=== PATIENT | female | born 1955 ===

== ENCOUNTER 2024-11-09 13:51 | Outpatient (AMB) | payer MEDICARE, SELFPAY ==
--- OUTSIDE RECORDS SUMMARY | 2024-11-09 13:58 | XMS_ITS | Encounter Summary ---
Author Organization [facility] [address] Address [address] [place] [address] Care Team Providers Care Chief Revenue Officer Name Role Phone Eliana Huertas MD Primary Care Prov ider Reason for Visit * Reason Onset Date Comments Med Refill 10/09/2024 Encounter Details Date Type Department Care Team (Late st Contact Info) Description 10/09/2024 Telephone Endocrinology - [place] [address] [place], [place] [phone] Latha Kessler PA [address] [place] [address] Social History Tobacco Use Types Packs/Day Years Used Date Smoking Tobacco: Never Smokeless Tobacco: Never Alcohol Use Standard Drinks/Week Comments No 0 (1 standard drink = 0.6 oz pur e alcohol) Housing Instability Answer Date Recorde d Are you worried that in the next 2 months you may not have stable housing? No 01/05/2024 Food Access & Nutrition Answer Date Rec orded Do you have access to a vari ety of food including fruits and vegetables? Yes 01/05/2024 Health Literacy Answer Date Recorded How often do you need to hav e someone help you when you read instructions, pamphlets, or other written material from your doctor or pharmacy? Rarely 01/05/2024 Caregiver: How often do you need to have someone help you when you read instructions, pamphlets, or other written material from your doctor or pharmacy? Not on file 01/05/2024 Financial Risk Answer Date Recorded How hard is it for you to pa y for the very basics like food, housing, medical care, and air conditioning / heating? Not very hard 01/05/2024 Transportation Answer Date Recorded Has the lack of transportati on kept you from meetings, work, or from getting things needed for daily living? No Has the lack of transportati on kept you from medical appointments or from getting medications? No 01/05/2024 Social Isolation Answer Date Recorded How often do you feel lonely or isolated from th ose around you? Never 01/05/2024 Food Risk Answer Date Recorded Within the past 12 months we worried whether our food would run out before we got money to buy more. Never true 01/05/2024 Within the past 12 months th e food we bought just didn't last and we didn't have money to get more. Never true 01/05/2024 Dependent Care Answer Date Recorded Do you need help finding or paying for care for your loved ones. For example, child and family services worker or elderly care for an older adult? No 01/05/2024 Education Answer Date Recorded Do you think completing more education or training, like finishing a GED, going to college, or learning a trade, would be helpful for you? No 01/05/2024 Employment and Income Answer Date Recor ded During the last four weeks, have you been actively looking for work? No 01/05/2024 Living Situation Answer Date Recorded What is your living situation? 1 03/06/2023 Comments No Sex and Gender Information Value Date Recorded Sex Assigned at Not on file Legal Sex Female 9:41 AM EST Gender Identity Not on file Sexual Orientation Not on file documented as of this encounter Plan of Treatment Upcoming Encounters Date Type Department Care Team (Late st Contact Info) Description 12/11/2024 1:[address] [facility] D[facility] [address] [place] [address] 01/25/2025 9:00 AM EST Office Visit Adult Medicine [address] [phone] Eliana Huertas MD [address] [place], [place] 02/01/2025 8:45 AM EST Office Visit Endocrinology - [address] [phone] Latha Kessler PA [address] [place] [address] documented as of this encounter Visit Diagnoses Not on filedocumented in this encounter Additional Health Concerns Assessment Noted Time PHQ-9 Depression Total Score: 0 01/05/20 6:21 PM EST documented as of this encounter Care Teams Chief Revenue Officer Relationship Specialty Start Date End Date Eliana Huertas MD [address] [place] [address] PCP - General Internal Medicine 01/17/24 documented as of this encounter
--- OUTSIDE RECORDS SUMMARY | 2024-11-09 13:59 | XMS_ITS ---
Author Name [facility] Organization Unknown Care Team Organization Name Specialty Phone Email Start Date End Da te [facility] Nils Collins Primary Care 06/28/2022 [facility] Termed, PROVIDER Primary Care 12/29/202109/21
--- OUTSIDE RECORDS SUMMARY | 2024-11-09 13:59 | XMS_ITS | Clinical Summary ---
Author Organization [facility] [address] [facility] Address [address] [place] [address] Phone Care Team Providers Care Cloth Measurer Name Role Phone Eliana Huertas MD Primary Care Prov ider Allergies No known active allergies Medications blood-glucose meter kit Test fasting glucose daily 08/20/19 22 Active acetaminophen (TYLENOL) 325 mg capsule Take 500 mg by mouth 1 (one) time each day. Active multivitamin (MULTIPLE VITAMINS ORAL) Take by mouth. Activ e mv-min/FA/vit K/lutein/zeax ant (PRESERVISION AREDS 2 PLUS MV ORAL) Take 2 capsules by mouth 2 (two) times a day. Active atorvastatin (LIPITOR) 20 mg tablet Take 1 tablet (20 mg total) by mouth 1 (one) time each day. 90 each 3 04/24/19 25 2025 Active diclofenac (VOLTAREN) 1 % topical gel Sig - Route: Apply 4 g topically 3 times daily as needed (back pain).Sig - Route: Apply 4 g topically 3 times daily as needed (back pain). 100 g 1 04/24/19 25 Active lancets (iubendaTouch Delica Plus Lancet) 33 gauge Apply 1 Stick topically 1 (one) time each day. 100 each 3 07/19/19 25 Active blood sugar diagnostic (OneTouch Verio test strips) test strip Use as instructedUSE TO TEST BLOOD SUGAR ONCE DAILY 100 each 07/19/19 25 Active metFORMIN XR (GLUCOPHAGE-X R) 500 mg 24 hr tablet Take 1 tab twice a day 60 each 07/19/19 25 Active empagliflozin (JARDIANCE) 25 mg tablet Take 1 tablet (25 mg total) by mouth 1 (one) time each day. 90 tablet 3 10/19/19 25 Active losartan-hydr oCHLOROthiazi de (HYZAAR) 50-12.5 mg per tablet Take 1 tablet by mouth 1 (one) time each day. Active empagliflozin (JARDIANCE) 10 mg tablet Take 1 tablet (10 mg total) by mouth 1 (one) time each day. 30 tablet 5 04/19/19 25 2024 Discontinued hydroCHLOROth iazide (HYDRODIURIL) 25 mg tablet Take 1 tablet (25 mg total) by mouth 1 (one) time each day. 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 Nair is here for 1 year follow-up since her C5-6 ACDF with plating on 07/05/2022 for cervical myelopathy. She has definitely had improved sensation especially the left hand and is no longer dropping plates and cups. 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 She has not had any trouble using those fine tools. She denies neck pain. She has not yet returned to driving because of her eyesight. On exam, her incision is well-healed, cervical rotation is 60 degrees bilaterally, strength 5/5, gait is a little unsteady she continues to use a cane. Review of the AP/lateral and flexion/extension x-rays from today show the graft to be well incorporated, plate and screws are all intact and there is no instability at any level. She has maintained normal lordosis. She is hopeful that she may continue to see some improvements in the sensation in the right fingers but she is likely at maximal medical improvement. At least her dexterity and strength are perfect and she has no real limitations. She is welcome to contact us if there are any new concerns in the future. Bilateral hand numbness 05/29/2022 CKD (chronic kidney disease) stage 3, GFR 30-59 ml/min ([facility] V24, [facility] V28) 12/18/2021 Assessment & Plan (10/24/2024 9:07 AM EDT): Last GFR was 45, stable. Following with nephrology. Recommended to avoid nephrotoxics. Assessment & Plan (04/23/2024 1:01 PM EST): Last GFR was 45, stable. Following with nephrology. Recommended to avoid nephrotoxics. Microalbuminuria 12/18/2021 DM (diabetes mellitus), type 2 with renal complications ([facility] V24, [facility] V28) 08/19/2021 Assessment & Plan (10/28/2024 12:20 PM EDT): Poor control of diabetes. Last A1c: 8.9. Patient will continue with yearly Podiatric and Ophthomologic evaluations. Follows with marvin, currently on Jardiance and Metformin. Did not tolerate Ozempic. Patient will follow up in 3 months Assessment & Plan (04/23/2024 1:01 PM EST): Poor control of diabetes. Last A1c: 8.2. Patient will continue with yearly Podiatric and Ophthomologic evaluations. Follows with marvin, currently on Ozempic and pending to start Jardiance. Recommended to keep taking her medications. Will see endo in June. Patient will follow up in 6 months Assessment & Plan (01/06/2024 4:02 PM EST): On Ozempic, unable to afford Jardiance. Will follow with endo next week. Hypertension 08/19/2021 Assessment & Plan (10/28/2024 12:20 PM EDT): The patient's antihypertensive regimen is based on their underlying medical issues. At the time of this visit, the blood pressure is well controlled on HCTZ. The patient is instructed to follow a low sodium diet and to follow up in 3 months. Assessment & Plan (04/23/2024 1:01 PM EST): The patient's antihypertensive regimen is based on their underlying medical issues. At the time of this visit, the blood pressure is well controlled on HCTZ. The patient is instructed to follow a low sodium diet and to follow up in 6 months. Dyslipidemia 07/27/2013 Assessment & Plan (10/28/2024 12:20 PM EDT): Given the patients cardiac risk profile, the patient requires an LDL cholesterol of less than 70. I have instructed the patient on the principles of a low cholesterol diet and the importance of regular exercise. Assessment & Plan (04/23/2024 1:01 PM EST): Given the patients cardiac risk profile, the patient requires an LDL cholesterol of less than 70, at target. I have instructed the patient on the principles of a low cholesterol diet and the importance of regular exercise. Kidney stone 12/10/2010 Encounters Date Type Department Care Team Description 10/24/2024 8:30 AM EDT Office Visit Adult Medicine [address] [phone] Eliana Hernandes MD Type 2 diabetes mellitus with stage 3 chronic kidney disease, without long-term current use of insulin, unspecified whether stage 3a or 3b CKD (CMS/HCC V24, CMS/HCC V28) (Primary Dx); Primary hypertension; Dyslipidemia; Stage 3 chronic kidney disease, unspecified whether stage 3a or 3b CKD (CMS/HCC V24, CMS/HCC V28); Primary osteoarthritis of right hip 10/18/2024 8:30 AM EDT Office Visit [address] [place] [phone] Latha Kessler PA Type 2 diabetes mellitus with stage 3 chronic kidney disease, without long-term current use of insulin, unspecified whether stage 3a or 3b CKD (CMS/HCC V24, CMS/[facility] V28) (Primary Dx); Primary hypertension; Stage 3 chronic kidney disease, unspecified whether stage 3a or 3b CKD (CMS/HCC V24, CMS/HCC V28); Microalbuminuria; Post-menopausal 10/09/2024 Telephone Endocrinology - [place] [address] [place], [place] [phone] Latha Kessler PA from Last 3 Months Immunizations Name Administration Dates Next Due Influenza Quadravalent, MDCK , 0.5ml, with preservative (Flucelvax) 6mo and older 11/30/2019 Influenza trivalent, 0.5mL ( Fluzone High-dose) 65yo and older 01/03/2023,12/22/2021 Influenza trivalent, with pr eservative (Fluzone; Afluria) 6mo and older 11/22/2023 Pneumococcal conjugate 20 va lent (Prevnar 20, PCV 20) 2mo and older 01/03/2023 Pneumococcal polysaccharide 23 valent (Pneumovax 23) 2yo and older 12/22/2021 Td Tetanus diptheria (Tdvax) 7yo and older 07/04 Tdap Tetanus diptheria acell ular pertussis (Boostrix; Adacel) 7yo and older 01/06/2024,01/06/2012 Surgical History Surgery Date Site/Laterality Comments COLONOSCOPY 03/26/11 [facility] PROCEDURE: HISTORICAL COLONOSCOPY; COMMENT: tics; repeat in ten yrs OTHER SURGICAL HISTORY 07/05/2022 PROCEDURE: AK ARTHRD ANT INTERDY CERVCL BELW C2 EA ADDL NTRSPC; COMMENT: C5-6 ACDF, Dr. Bhardwaj Medical History Medical History Date Comments Kidney stone 12/10/2010 DX:Kidney stone DM (diabetes mellitus), type 2 with renal complications (CMS/HCC V24, CMS/HCC V28) 08/19/2021 DX:DM (diabetes mellitus), t ype 2 with renal complications (HCC) CKD (chronic kidney disease) stage 3, GFR 30-59 ml/min ([facility] V24, [facility] V28) 12/18/2021 DX:CKD (chronic kidney disea se) stage 3, GFR 30-59 ml/min ([facility]) Microalbuminuria 12/18/2021 DX:Microalbumin uria Morbid obesity with BMI of 4 5.0-49.9, adult ([facility] V24, [facility] V28) 11/25/2010 DX:Morbid obesity wit h BMI of 45.0-49.9, adult ([facility]) Family History Medical History Relation Name Comments Diabetes Aunt Heart attack Father Other: atrial fib Mother Hyperthyroidism Sister Breast cancer Neg Hx Colon cancer Neg Hx Ovarian cancer Neg Hx Relation Name Status Comments Aunt Father Mother Sister Social History Tobacco Use Types Packs/Day Years Used Date Smoking Tobacco: Never Smokeless Tobacco: Never Tobacco Cessation:Counseling Given: Not Answered Alcohol Use Standard Drinks/Week Comments No 0 [...] care for your loved ones. For example, childcare director or elderly care for an older adult? [...] on file Sexual Orientation Not on file Obstetrics History Para Term AB IAB SAB Ectopic Multiple Livin g Live Births 2 2 2 2 Date Outcome GA Total Labor Labor/2nd/3rd Weight Sex Type Anes PTL Madelyn A1 A5 Name Clin Term Term Last Filed Vital Signs Vital Sign Reading Time Taken Comments Blood Pressure 135/73 10/24/2024 8:50 AM EDT Pulse 77 10/24/2024 8:50 AM EDT Temperature 35.7 C (96.2 F) 10/24/2024 8:50 AM EDT Respiratory Rate 15 10/24/2024 8:50 AM EDT Oxygen Saturation 97% 10/24/2024 8:50 AM EDT Inhaled Oxygen Concentration - - Weight 107 kg (236 lb 6.4 oz) 10/24/2024 8:50 AM EDT Height 160 cm (5' 3 ) 10/24/2024 8:50 AM EDT Body Mass Index 41.88 10/24/2024 8:50 AM EDT Plan of Treatment Upcoming Encounters Date Type Department Care Team (Late st Contact Info) Description 12/11/2024 1:00 PM EDT Appointment [facility] Bone Density [address] [place] [phone] 01/25/2025 9:00 AM EST Office Visit Adult Medicine East - [address] [phone] Eliana Huertas MD [address] [place], [place] 02/01/2025 8:45 AM EST Office Visit Endocrinology - [address] [phone] Latha Kessler PA [address] [place] [address] Health Maintenance Due Date Last Done Comments Zoster Vaccines (1 of 2) 1974 RSV Immunization Adult Patients (1 - Risk 60-74 years 1-dose series) 2015 Medicare Annual Wellness Visit 01/30/2022 Depression Screening 02/22/2024 01/05/2024, 09/02/19 24 Falls Risk Assessment 09/01/2024 09/02/2023 COVID-19 Vaccine ( season) 2024 12/26/2020, 05/03/2020, 04/05/2020 Influenza Vaccine (#1) 2024 , 01/03/2023, 12/22/2021, Additional history exists Diabetes: Annual Foot Exam 11/21/2024 11/22/2023 Social Influencers of Health Screening 01/04/2025 01/05/2024 Diabetes: Blood Sugar Control Test (HGBA1C) 01/18/2025 07/18/2024, 01/27/2024, 09/02/2023, Additional history exists Diabetes: Annual Retina Eye Exam 06/19/2025 06/19/2024, 05/30/2023 Diabetes: Annual Urine Albumin-Creatinine Ratio (uACR) 08/03/2025 08/03/2024, 08/03/2024, 01/27/2024, Additional history exists Diabetes: Annual GFR (Glomerular Filtration Rate) 08/03/2025 08/03/2024, 08/03/2024, 07/18/2024, Additional history exists Hypertension/CHF/CAD Annual BMP Blood Test 08/03/2025 08/03/2024, 08/03/2024, 07/18/2024, Additional history exists Breast Cancer Screening 05/02/2026 05/03/19, 04/27/2023, 04/21/2022, Additional history exists Colorectal Cancer Screening: Colonoscopy 08/12/2027 08/11/2022 Cholesterol Screening (Lipid Panel) 01/26/2029 01/27/2024, 03/02/2023 Osteoporosis Screening (Bone Density Screening) 04/21/2032 04/21/2022 DTaP,Tdap,and Td Vaccines (4 - Td or Tdap) 01/05/2034 01/06/2024, 01/06/2012, 07/05/2003 Hepatitis C Screening Completed 12/22/2018 Pneumococcal Vaccine: 50+ Years Completed 01/03/2023, 12/22/2021 HIB Vaccines Aged Out No longer eligi ble based on patient's age to complete this topic HPV Vaccines Aged Out No longer eligi ble based on patient's age to complete this topic Hepatitis A Vaccines Aged Out No long er eligible based on patient's age to complete this topic Hepatitis B Vaccines Aged Out No long er eligible based on patient's age to complete this topic IPV Vaccines Aged Out No longer eligi ble based on patient's age to complete this topic MMR Vaccines Aged Out No longer eligi ble based on patient's age to complete this topic Meningococcal ACWY Vaccine Aged Out N o longer eligible based on patient's age to complete this topic Meningococcal B Vaccine Aged Out No l onger eligible based on patient's age to complete this topic RSV Immunization Patients Under 20 months Aged Out No longer eligible based on patient's age to complete this topic Varicella Vaccines Aged Out No longer eligible based on patient's age to complete this topic Procedures Procedure Name Priority Date/Time Associated Diagnosis Comments POC GLUCOSE Routine 10/18/2024 8:25 AM EDT Type 2 diabetes mellitus with stage 3 chronic kidney disease, without long-term current use of insulin, unspecified whether stage 3a or 3b CKD (CMS/HCC V24, CMS/HCC V28) MICROALBUMIN CREATININE URINE RATIO Routine 08/03/2024 8:43 AM EDT Chronic kidney disease (CKD) stage G3a/A1, moderately decreased glomerular filtration rate (GFR) between 45-59 mL/min/1.73 square meter and albuminuria creatinine ratio les* (CMS/HCC V24, CMS/HCC V28) BASIC METABOLIC PANEL Routine 08/03/2024 8:43 AM EDT Chronic kidney disease (CKD) stage G3a/A1, moderately decreased glomerular filtration rate (GFR) between 45-59 mL/min/1.73 square meter and albuminuria creatinine ratio les* (CMS/HCC V24, CMS/HCC V28) HEMOGLOBIN A1C Routine 07/18/2024 4:32 PM EDT Type 2 diabetes mellitus with stage 3 chronic kidney disease, without long-term current use of insulin, unspecified whether stage 3a or 3b CKD (CMS/HCC V24, CMS/HCC V28) EXTERNAL DIABETIC RETINA EYE EXAM Routine 06/19/2024 11:52 AM EDT MG MAMMO DIGITAL SCREENING W C[place] BILAT Routine 05/02/2024 3:10 PM EDT Encounter for screening mammogram for breast cancer LIPID PANEL WITH REFLEX TO DIRECT LDL Routine 01/27/2024 8:21 AM EST Type 2 diabetes mellitus with stage 3 chronic kidney disease, without long-term current use of insulin, unspecified whether stage 3a or 3b CKD (CMS/HCC V24, CMS/HCC V28) DIABETES FOOT EXAM Routine 11/22/2023 DEPRESSION SCREENING Routine 09/02/2023 FALLS RISK ASSESSMENT Routine 09/02/2023 COLONOSCOPY Routine 08/11/2022 DXA BONE DENSITY STUDY 1+ SITS AXIAL SKEL Routine 04/21/2022 3:00 PM EST Type 2 diabetes mellitus with other diabetic kidney complication (CMS/HCC V24, CMS/HCC V28) Chronic kidney disease, stage 3 unspecified (CMS/HCC V24, CMS/HCC V28) Proteinuria, unspecified Morbid (severe) obesity due to excess calories ([facility] V24, [facility] V28) Body mass index (BMI) 45.0-49.9, adult ([facility] V24, [facility] V28) Hyperlipidemia, unspecified Essential (primary) hypertension HEPATITIS C SCREENING Routine 12/22/2018 from Last 3 Months or Most Recently Relevant to Health Maintenance Results * POC glucose manually resulted (10/18/2024 8:25 AM EDT) Glucose POC 302 mg/dL Blood Capillary blood specimen / Unknown 10/18/2024 8:25 AM EDT us Latha MICHAUD POINT OF CARE TEST ENTER/ED IT ORDERABLES Final Result * (ABNORMAL) Microalbumin creatinine urine ratio (08/03/2024 8:43 AM EDT) Creatinine, Urine 114.0 mg/dL LAB CHEMISTRY METHOD 08/03/2024 11:22 AM EDT [facility] Microalb, Ur 120.0(H) 0.0 - 29.0 mg/L LAB CHEMISTRY METHOD 08/03/2024 11:22 AM EDT [facility] Microalb/Crea t Ratio 105(H) <30 mg/g creat LAB CHEMISTRY METHOD 08/03/2024 11:22 AM EDT [facility] Urine Urine specimen obtained by clean catch procedure / Unknown Non-blood Collection / Unknown 08/03/2024 8:43 AM EDT 08/03/2024 8:43 AM EDT Truman Olivas MD LAB URINE ORDERABLES Final Result [facility] [address] [place] [address], [place] [phone] * (ABNORMAL) Basic metabolic panel (08/03/2024 8:43 AM EDT) Sodium 137 133 - 145 mmol/L LAB CHEMISTRY METHOD 08/03/2024 10:27 AM [facility] Potassium 3.6 3.5 - 5.5 mmol/L LAB CHEMISTRY METHOD 08/03/2024 10:27 AM [facility] Chloride 101 96 - 110 mmol/L LAB CHEMISTRY METHOD 08/03/2024 10:27 AM [facility] CO2 26 21 - 32 mmol/L LAB CHEMISTRY METHOD 08/03/2024 10:27 AM [facility] Anion Gap 10 3 - 11 LAB CHEMISTRY METHOD 08/03/2024 10:27 AM [facility] Glucose 294(H) 70 - 100 mg/dL LAB CHEMISTRY METHOD 08/03/2024 10:27 AM [facility] BUN 22 5 - 25 mg/dL LAB CHEMISTRY METHOD 08/03/2024 10:27 AM [facility] Creatinine 1.29(H) 0.50 - 1.10 mg/dL LAB CHEMISTRY METHOD 08/03/2024 10:27 AM [facility] eGFR 45(L) >=60 mL/min/1. 73m2 LAB CHEMISTRY METHOD 08/03/2024 10:27 AM [facility] Comment:Calculation based on the Chronic Kidney Disease Epidemiology Collaboration (CKD-EPI) equation refit without adjustment for race. BUN/Creatinine Ratio 17.1 LAB CHEMISTRY METHOD 08/03/2024 10:27 AM [facility] Calcium 9.6 8.5 - 10.5 mg/dL LAB CHEMISTRY METHOD 08/03/2024 10:27 AM [facility] Blood Venous blood specimen / Unknown Venipuncture / Unknown 08/03/2024 8:43 AM EDT 08/03/2024 8:43 AM EDT Truman Olivas MD LAB BLOOD ORDERABLES Final Result Performing Organization Address [facility]/ZIP Co de Phone Number [facility] [address] [place] [address], [place] [phone] * (ABNORMAL) Hemoglobin A1c (07/18/2024 4:32 PM EDT) Hemoglobin A1C 8.9(H) <6.5 % LAB CHEMISTRY METHOD 07/18/2024 10:53 PM EDT [facility] Mean Bld Glu Estim. 209 mg/dL LAB CHEMISTRY METHOD 07/18/2024 10:53 PM EDT [facility] Blood Venous blood specimen / Unknown Venipuncture / Unknown 07/18/2024 4:32 PM EDT 07/18/2024 4:33 PM EDT Latha MICHAUD LAB BLOOD ORDERABLES Final Result Performing Organization Address [facility]/ZIP Co de Phone Number [facility] [address] [place] [address], [place] [phone] * External Diabetic Retina Eye Exam Report (06/19/2024 11:52 AM EDT) Anatomical Region Laterality Modality Ultrasound Historical Provider IMG US PROCEDURES Final R esult * MG Mammo Digital Screening w Clayton bilat (05/02/2024 3:10 PM EDT) Anatomical Region Laterality Modality Breast Bilateral Mammography 05/03/2024 1:09 PM EDT Impressions 05/03/2024 1:16 PM EDT 1. No mammographic evidence of malignancy 2. Scattered fibroglandular tissue BI-RADS CATEGORY: 2 - BENIGN RECOMMENDATION: Screening bilateral mammogram is recommended in 1 year. Mammo Location: [place] [facility], [address] [place] [address], [id number], . -------- FINAL REPORT -------- Dictated By: Matt Olivo Dictated Date: 05/03/2024 13:09 ET Assigned Physician: Matt Olivo Reviewed and Electronically Signed By: Matt Olivo Signed Date: 05/03/2024 13:16 ET Workstation ID: [id number] Transcribed By: Self Edit Transcribed Date: 05/03/2024 13:09 ET Narrative 05/03/2024 1:16 PM EDT A BILATERAL DIGITAL 3D SCREENING MAMMOGRAPHY HISTORY: Routine screening. No family history of breast cancer. COMPARISON: Multiple priors dating back to 04/21/2022 Technique: Bilateral full field digital mammography (3D) was performed using standard CC and MLO projections CAD was used to evaluate this mammogram. FINDINGS: Right: No suspicious masses, groups of microcalcification or areas of architectural distortion identified. Stable typically benign parenchymal asymmetries. Left: No suspicious masses, groups of microcalcification or areas of architectural distortion identified. Stable typically benign parenchymal asymmetries. BREAST DENSITY: B - There are scattered areas of fibroglandular density. Procedure Note Matt Olivo MD - 05/03/2024 A BILATERAL DIGITAL 3D SCREENING MAMMOGRAPHY HISTORY: Routine screening. No family history of breast cancer. COMPARISON: Multiple priors dating back to 04/21/2022 Technique: Bilateral full field digital mammography (3D) was performedusing standard CC and MLO projections CAD was used to evaluate this mammogram. FINDINGS: Right: No suspicious masses, groups of microcalcification or areas ofarchitectural distortion identified. Stable typically benign parenchymalasymmetries. Left: No suspicious masses, groups of microcalcification or areas ofarchitectural distortion identified. Stable typically benign parenchymalasymmetries. BREAST DENSITY: B - There are scattered areas of fibroglandular density. IMPRESSION: 1. No mammographic evidence of malignancy 2. Scattered fibroglandular tissue BI-RADS CATEGORY: 2 - BENIGN RECOMMENDATION: Screening bilateral mammogram is recommended in 1 year. Mammo Location: [facility], [address] [place] [address], [id number], . -------- FINAL REPORT -------- Dictated By: Matt Olivo Dictated Date: 05/03/2024 13:09 ET Assigned Physician: Matt Olivo Reviewed and Electronically Signed By: Matt Olivo Signed Date: 05/03/2024 13:16 ET Workstation ID: [id number] Transcribed By: Self Edit Transcribed Date: 05/03/2024 13:09 ET us Eliana Huertas MD IMG BI PROCEDURES Final Result * (ABNORMAL) Lipid panel with reflex to direct LDL (01/27/2024 8:21 AM EST) Cholesterol 152 0 - 200 mg/dL LAB CHEMISTRY METHOD 01/27/2024 10:05 AM EST [facility] Triglycerides 193(H) 0 - 150 mg/dL LAB CHEMISTRY METHOD 01/27/2024 10:05 AM [facility] HDL 40 >=40 mg/dL LAB CHEMISTRY METHOD 01/27/2024 10:05 AM EST [facility] LDL Calculated 73 0 - 100 mg/dL LAB CHEMISTRY METHOD 01/27/2024 10:05 AM EST [facility] VLDL Cholesterol Gregory 38.6 mg/dL LAB CHEMISTRY METHOD 01/27/2024 10:05 AM EST [facility] Non HDL Chol. (LDL+VLDL) 112 <145 mg/dL LAB CHEMISTRY METHOD 01/27/2024 10:05 AM EST [facility] Chol/HDL Ratio 3.8 0.0 - 4.4 LAB CHEMISTRY METHOD 01/27/2024 10:05 AM [facility] Blood Venous blood specimen / Unknown Venipuncture / Unknown 01/27/2024 8:21 AM EST 01/27/2024 8:21 AM EST us Latha MICHAUD LAB BLOOD ORDERABLES Final Result [facility] [address] [place] [address], [place] [phone] * Hm Diabetes Foot Exam (11/22/2023) [facility] Diabetes: Annual Foot Exam abstracted [facility] Provider HEALTH MAINTENANCE Final Result * Falls Risk Assessment (09/02/2023) [facility] Falls Risk Assessment abstracted Result [facility] hospital HEALTH MAINTENANCE Final Result * Depression Screening (09/02/2023) [facility] Depression Screening abstracted Result [facility] HEALTH MAINTENANCE Final Result * Colonoscopy (08/11/2022) [facility] Colonoscopy no interpretation , abstracted Anatomical Region Laterality Modality Other Result [facility] HEALTH MAINTENANCE Final Result * DXA BONE DENSITY STUDY 1+ SITS AXIAL SKEL (04/21/2022 3:00 PM EST) Anatomical Region Laterality Modality Bone Densitometr y 12/22/2021 11:0 3 AM EDT Narrative 04/21/2022 3:25 PM EST BONE DENSITY Lumbar Spine T-score is +1.8 (SD relative to 20-29 y/o adult) Z-score is +3.7 (SD relative to age matched peers) This is normal by criteria defined by the WHO. Left Hip T-score is -0.5 Z-score is +1.1 This is normal by criteria defined by the WHO. Impression: Based on the World Health Organization criteria, Lissy Nair should be classified as having normal bone density. The [facility] Department of Internal Medicine recommends using National Osteoporosis Foundation (NOF) guidelines in treatment decisions related to osteoporosis. NOF guidelines suggest considering treatment for postmenopausal women and men aged 50 or older presenting with the following: History of hip or vertebral fracture. T-score less than or equal to -2.5 (DXA) at the femoral neck, total hip, or spine, after appropriate evaluation to exclude secondary causes. Low bone mass (T-score between -1.0 and -2.5 at the femoral neck or spine) AND a 10-year probability of a hip fracture greater than or equal to 3% OR a 10-year probability of a major osteoporosis-related fracture greater than or equal to 20% based on the [place]-adapted WHO algorithm Please note that all treatment decisions require clinical judgment and consideration of individual patient factors, including patient preferences, co-morbidities, previous drug use, risk factors not captured in the FRAX model (e.g., frailty, falls, vitamin D deficiency, increased bone turnover, interval significant decline in bone density) and possible under- or over-estimation of fracture risk by FRAX. Procedure Note Lee Ann Marrero MD - 03/29/2023 BONE DENSITY Lumbar Spine T-score is +1.8 (SD relative to 20-29 y/o adult) Z-score is +3.7 (SD relative to age matched peers) This is normal by criteria defined by the WHO. Left Hip T-score is -0.5 Z-score is +1.1 This is normal by criteria defined by the WHO. Impression: Based on the World Health Organization criteria, Lissy Nair shouldbe classified as having normal bone density. [facility] Department of Internal Medicine recommendsusing National Osteoporosis Foundation (NOF) guidelines in treatmentdecisions related to osteoporosis. NOF guidelines suggest consideringtreatment for postmenopausal women and men aged 50 or older presentingwith the following: History of hip or vertebral fracture. T-score less than or equal to -2.5 (DXA) at the femoral neck, total hip,or spine, after appropriate evaluation to exclude secondary causes. Low bone mass (T-score between -1.0 and -2.5 at the femoral neck or spine)AND a 10-year probability of a hip fracture greater than or equal to 3% ORa 10-year probability of a major osteoporosis-related fracture greaterthan or equal to 20% based on the [place]-adapted WHO algorithm Please note that all treatment decisions require clinical judgment andconsideration of individual patient factors, including patientpreferences, co-morbidities, previous drug use, risk factors not capturedin the FRAX model (e.g., frailty, falls, vitamin D deficiency, increasedbone turnover, interval significant decline in bone density) and possibleunder- or over-estimation of fracture risk by FRAX. Nils MICHAUD [facility] [place] [facility] DXA PROCEDURES Final Result * Hepatitis C Screening (12/22/2018) Hepatitis C Screening abstracted us Historical Provider HEALTH MAINTENANCE Final Result from Last 3 Months or Most Recently Relevant to Health Maintenance Insurance [employer] Care Teams Cloth Measurer Relationship Specialty Start Date End Date Eliana Huertas MD [address] [place] [address] PCP - General Internal Medicine 01/17/24
--- OUTSIDE RECORDS SUMMARY | 2024-11-09 13:59 | XMS_ITS | Clinical Summary ---
Author Organization [facility] Address [address] [place] [address] Phone Care Team Providers Care Department Of Mathematics Chair Name Role Phone Eliana Branham MD Primary Care Provider + Allergies No known active allergies Medications atorvastatin (LIPITOR) 20 MG tablet 0 Refills, Maintenance, 03/17/22 8:40:00 EST, Partial fill upon patient request if the prescription is for a schedule II opioid drug. 3 Active Multiple Vitamins-Minera ls (PreserVision AREDS) tablet Take by mouth Ac tive Diclofenac Sodium 1 % gel Sig - Route: Apply 4 g topically 3 times daily as needed (back pain).Sig - Route: Apply 4 g topically 3 times daily as needed (back pain). 5 Active Empagliflozin 10 MG tablet Take 10 mg by mouth in the morning. 5 Active metFORMIN XR (GLUCOPHAGE-XR) 500 MG 24 hr tablet Take 500 mg by mouth 5 Active losartan-hydroC HLOROthiazide (Hyzaar) 50-12.5 MG per tablet Take 1 tablet by mouth 1 (one) time each day 30 tablet 11 5 08/08/19 26 Active Active Problems Problem Noted Date Diagnosed Date Basal cell carcinoma of skin 07/25/2023 Cervical myelopathy 07/25/2023 Chronic kidney disease 07/25/2023 Microalbuminuria 07/25/2023 Diabetes mellitus 07/25/2023 Essential (primary) hypertension 07/25/2023 Dyslipidemia 07/25/2023 Renal stone 07/25/2023 Morbid obesity 07/25/2023 Non-arteritic ischemic optic neuropathy 07/25/19 24 Numbness of hand 05/29/2022 Type 2 diabetes mellitus wit h other diabetic kidney complication 08/19/2021 Family History Medical History Relation Comments Diabetes Father Heart attack Father Alzheimer's disease Mother Dementia Mother Relation Status Comments Father Mother Social History Tobacco Use Types Packs/Day Years Used Date Smoking Tobacco: Never Smokeless Tobacco: Never Tobacco Cessation:Counseling Given: Not Answered Alcohol Use Standard Drinks/Week Comments Not Currently 0 (1 standard drink = 0.6 oz pur e alcohol) Comments Unknown Sex and Gender Information Value Date Recorded Sex Assigned at Not on file Legal Sex Female 9:18 AM EST Gender Identity Not on file Sexual Orientation Not on file Last Filed Vital Signs Vital Sign Reading Time Taken Comments Blood Pressure 136/70 08/07/2024 4:41 PM EDT Pulse 71 08/07/2024 4:41 PM EDT Temperature - - Respiratory Rate - - Oxygen Saturation 98% 08/07/2024 4:41 PM EDT Inhaled Oxygen Concentration - - Weight 108 kg (239 lb) 08/07/2024 4:41 PM EDT Height - - Body Mass Index - - Plan of Treatment Upcoming Encounters Date Type Department Care Team (Late st Contact Info) Description 02/05/2025 4:15 PM EST Office Visit [facility] [address] [phone] Truman Olivas MD [address] [phone] Health Maintenance Due Date Last Done Comments Breast Cancer Screening 1955 Colorectal Cancer Screening: Annual FOBT 02/20/2004 Colorectal Cancer Screening: Colonoscopy 02/20/2004 Colorectal Cancer Screening: Sigmoidoscopy 02/20/2004 Pneumococcal Vaccine: 50+ Years (2 of 2 - PCV) 12/22/2022 12/22/2021 Diabetes: Ophthalmology Exam 07/25/2023 Diabetes: Pedal Pulse Checked 07/25/2023 Diabetes: Sensory Foot Exam 07/25/2023 Diabetes: Visual Foot Exam 07/25/2023 Diabetes: Hemoglobin A1C 10/18/202407/18/2 025, 01/27/2024, 09/02/2023, Additional history exists Influenza Vaccine (#1) 2024 3, 12/22/2021, 11/30/2019 Hepatitis B Vaccine Aged Out No longe r eligible based on patient's age to complete this topic Procedures Procedure Name Priority Date/Time Associated Diagnosis Comments HEMOGLOBIN A1C Routine 07/25/2023 4:24 PM EDT from Last 3 Months or Most Recently Relevant to Health Maintenance Results * (ABNORMAL) Hemoglobin A1c (07/25/2023 4:24 PM EDT) Hemoglobin A1C 7.6(H) 4.8 - 5.6 % See order comments Comment: Prediabetes: 5.7 - 6.4 Diabetes: >6.4 Glycemic control for adults with diabetes: <7.0 07/25/2023 4:24 PM EDT 07/25/2023 Narrative [facility] - 07/27/2023 8:12 AM EDT Performed at: [facility] [id number] Oil Expeller Operator: Jasmin Roy MD, Phone: [phone] us Truman Olivas MD LAB BLOOD ORDERABLES Final Result [facility] See order comments [place] [address] from Last 3 Months or Most Recently Relevant to Health Maintenance Insurance Medicare [place] [employer] [place] Care Teams Department Of Mathematics Chair Relationship Specialty Start Date End Date Eliana Branham MD [address] [place] [address] PCP - General 04/25/23
--- NOTE | 2024-11-09 14:29 | AM.OFFWIN_ITS ---
Intake Vital Signs 11/09/24 14:31 Height 5 ft 3 in Weight 236 lb BMI 41.8 BP 116/60 Blood Pressure Location Lt brachial Position Sitting Pulse 99 Pulse Source Pulse Oximeter Temp 98.1 F Temp Source Oral Pulse Oximetry (%) 98 Oxygen Delivery Method Room Air Intake Visit Reasons: [employer] severe back pain Intake Note: pt presents with severe right low back pain for about a week now- denies injury Allergies No Known Allergies Allergy (Verified 11/09/24 14:33) Do you need a note to return to daycare/school/sports/work: No HPI HPI Comments History of Present Illness Details History - The patient is a 69-year-old female pr esenting with severe right-sided low back pain radiating down the leg. - The pain began without any known injur y and has progressively worsened over time. - The patient received a steroid injecti on in the right hip three weeks ago, which initially provided relief. - The pain has since returned and intens ified, now radiating down the leg, indicating possible sciatica. - The patient has a history of diabetes mellitus, managed with Dardiance and metformin. + Physical Exam General: cooperative, healthy appearing , in acute distress from pain, patient oriented x3 Head: Yes normal to inspection and Yes normocephalic General nose exam: Normal external nose present Face and sinus: Yes normal facial exam Effort & Inspection: normal respiratory effort and able to speak in complete sentences Back/spine: no CVA tenderness bilaterally cervical, thoracic and lumbar spine normal to inspection cervical ROM normal, thoracic ROM normal, lumbar ROM normal no Cervical, thoracic or lumbar spine tenderness TTP on right low back into right buttocks Extremities: Straight leg raise test positive on right; Straight leg raise test negative on left; motor strength normal bilaterally, sensation intact bilaterally Neuro: tyler gait (2/2 pain) Review of Systems - Musculoskeletal: Reports severe right- sided low back pain radiating down the leg - Neurological: Denies loss of bladder o r bowel control All systems reviewed and are unremarkable except as noted in HPI and above Review of Systems Const All systems reviewed & are unremarkable except as noted in HPI and below Physical Exam Vital Signs: Last Vital Signs Temp 98.1 F 11/09/24 14:31 Pulse 103 H 11/09/24 14:31 BP 116/60 11/09/24 14:31 Pulse Ox 98 09/19/25 14:31 Oxygen Delivery Method Room Air 11/09/24 14:31 BMI result Body Mass Index 41.8 Assessment & Plan Assessment & Plan (1) Acute right-sided low back pain with right-sided sciatica: Code(s): M54.41 - Lumbago with sciatica, right side Plan: Plan - Prescribed prednisone to reduce inflammation and alleviate pain. Advised blood sugars will rise when taking. Discussed risks and benefits - Prescribed cyclobenzaprine as a muscle relaxant to aid in sleep and pain management. - Advised to use ice on the affected area for additional relief. - Instructed to monitor for any loss of bladder or bowel control and seek emergency care if it occurs. Patient was informed and verbally consented to the use of an ambient scribe for clinic note documentation during this visit. Medications: New cyclobenzaprine 5 mg PO Q8H PRN 20 tabs 0RF Muscle Spasm prednisone 50 mg PO QAM 5 tabs 0RF Coding Level of Care Code New Pt Level 3 (16661) Diagnoses Acute right-sided low back pain with right-sided sciatica M54.41
[2024-11-09 14:31] VITALS: BP 116/60; PULSE 99; TEMP 36.7; O2SAT 98; BMI 41.8
== END 2024-11-09 15:14 | disposition home or self-care (01) ==
PROVIDERS: Visit Provider Physician Assistant
DX: M54.41 Lumbago with sciatica, right side (principal)

== ENCOUNTER → 2024-11-09 13:51 | Outpatient (BNVA) | payer MEDICARE, SELFPAY | PROVIDERS: Visit Provider Physician Assistant | DX: M54.41 Lumbago with sciatica, right side (principal) | CPT/HCPCS: 99202 ==